=== PATIENT | male | born 1995 | race American Indian/Alaskan Native ===

== ENCOUNTER 2021-01-28 17:18 | Emergency (ER) | payer OTHER ==
[~2021-01-28] VITALS: Ht 177.8 cm; Wt 116.6 kg
[2021-01-28] MEDS ORDERED: VENTOLIN HFA18 GM INH (20:44)
== END 2021-01-28 22:45 | disposition home or self-care (01) ==
LOC: ED 17:18
DX: U07.1 COVID-19 (principal); J45.909 Unspecified asthma, uncomplicated
CPT/HCPCS: 71045; 99283-25; C9803; Q0244; U0003